=== PATIENT | male | born 1955 | race Caucasian/White ===

== ENCOUNTER 2018-09-11 09:11 | Day surgery (SDC) | payer OTHER ==
[2018-09-11] MEDS ORDERED: FENTAnyl 50 MCG/ML VIAL (11:16)
[2018-09-11] MEDS ORDERED: MIDAZOLAM 1 MG/ML 2 ML INJ (11:16)
== END 2018-09-11 13:47 | disposition home or self-care (01) ==
LOC: GIL 09:11
DX: Z12.11 Encounter for screening for malignant neoplasm of colon (principal); K62.1 Rectal polyp; K64.8 Other hemorrhoids
CPT/HCPCS: 45380; 88305